=== PATIENT | male | born 1990 | race Hispanic/Latino ===

== ENCOUNTER 2019-08-10 09:49 | Emergency (ER) | payer OTHER ==
[~2019-08-10] VITALS: Ht 190.5 cm; Wt 88.9 kg
[~2019-08-10 09:49] MED LIST: NORCO 5-325 TA1 EACH PO
[2019-08-10] MEDS ORDERED: TRAZODONE HCL50 MG PO (11:23)
== END 2019-08-10 11:30 | disposition home or self-care (01) ==
LOC: ED 09:49
DX: G47.9 Sleep disorder, unspecified (principal); F91.9 Conduct disorder, unspecified; Z87.891 Personal history of nicotine dependence; Z91.048 Other nonmedicinal substance allergy status
CPT/HCPCS: 99283